=== PATIENT | female | born 1945 | race Caucasian/White ===

== ENCOUNTER 2025-01-28 18:19 | Emergency (ER) | payer BC, SELFPAY ==
[2025-01-28 18:30] VITALS: BP 238/114
[2025-01-28 18:51] VITALS: BMI 41.8
[2025-01-28 18:52] VITALS: BP 185/74
[2025-01-28 19:00] VITALS: BP 193/70
[2025-01-28 19:25] LABS: Hematocrit 38.9 % (37.0-47.0); Hemoglobin 12.6 g/dL (12.0-16.0); Mean Corp Hgb Conc. 32.4 g/dL (33.0-37.0); Mean Corpuscular Volume 85.3 fL (81.0-99.0); Nucleated Red Blood Cells % 0 %; Platelet Count 208 10^3/uL (130-400); Red Cell Dist. Width 13.4 % (11.5-14.5)
[2025-01-28 19:40] LABS: ALT (SGPT) 16 U/L (0-35); AST (SGOT) 25 U/L (14-36); Albumin 4.1 g/dl (3.5-5.0); Alkaline Phosphatase 83 U/L (38-126); Blood Urea Nitrogen 17 mg/dl (7-17); Calcium 9.3 mg/dl (8.4-10.2); Carbon Dioxide 26 mmol/L (22-30); Chloride 105 mmol/L (98-107); Estimated Creatinine Clearance 66 ml/min; Glucose 111 mg/dl (70-99); Potassium 4.2 mmol/L (3.5-5.1); Sodium 137 mmol/L (135-145); Total Protein 6.8 g/dl (6.3-8.2); eGFR > 60.00
[2025-01-28 20:00] VITALS: BP 199/78
[2025-01-28 21:00] VITALS: BP 204/91
--- NOTE | 2025-01-28 21:06 | ED.GENMED ---
History of Present Illness
General
Chief Complaint: Blood Pressure Problem
Source: patient
Time Seen by Provider: 01/28/25 20:00
History of Present Illness
History of Present Illness:
79-year-old female presents to the emergency room complaining of elevated blood pressure. Patient has been told her blood pressure did not elevate in the past. At 1 point her primary care doctor prescribed losartan. She stopped taking it because
she thought it made her constipated. She currently has no primary care provider. Patient admits that she is apprehensive to take medications. Patient went to the urgent care to have a history and physical performed in preparation for a cataract
procedure. She was feeling at her baseline and has no complaints at this time. Evidently the staff at the urgent care sent her here because her blood pressure was elevated. Patient denies any chest pain, shortness of breath, abdominal pain,
nausea or vomiting.
Past History
Past History
ED Past Medical History: HTN
Social History
Tobacco: Non-smoker
Personal:
Phy Exam
Physical Exam
Physical Exam:
General: Awake, Alert, Oriented X3. No acute distress.
Vitals: Hypertensive
Head: Atraumatic
Eyes: Pupils equal, EOMI
Throat: Airway intact, no exudates
Neck: Trachea midline
Lungs: Clear and equal b/l
Heart: Regular rate, no murmurs
Abd: Soft, Nontender, No pulsatile mass
Neuro: Nonfocal
Skin: Warm, dry, no rash
Extremities: pulses equal b/l, no edema
Course
Orders/Labs/Results
Orders:
Orders
01/28/25 18:21
EKG [Electrocardiogram (*1)] Urgent
Reason for Study: Abnormal EKG
EKG- Treatment ONCE
01/28/25 19:18
CMP [Comprehensive Metabolic Panel] Urgent
Complete Blood Count/With Diff Urgent
01/28/25 21:07
Amlodipine [Norvasc] 5 mg PO NOW STA
Abnormal Lab Results
01/28/25
19:18
MCHC 32.4 L g/dL
(33.0-37.0)
Absolute Neuts (auto) 7.9 H 10^3/uL
(1.4-6.5)
Neutrophils % 78.3 H %
(42.2-75.2)
Lymphocytes % 14.0 L %
(20.5-51.1)
Glucose 111 H mg/dl
(70-99)
01/28/25 19:18
01/28/25 19:18
Vital Signs
Initial and Last Documented VS:
Initial Vital Signs
Temp Pulse Resp BP Pulse Ox
98.9 F 83 18 238/114 98
01/28/25 18:30 01/28/25 18:30 01/28/25 18:30 01/28/25 18:30 01/28/25 18:30
Last Documented Vital Signs
Temp Pulse Resp BP Pulse Ox
98.9 F 67 20 213/78 95
01/28/25 18:30 01/28/25 21:15 01/28/25 20:00 01/28/25 21:15 01/28/25 21:15
MDM/Problems Addressed
Differential Diagnosis Includes:
Uncontrolled hypertension, renal insufficiency, electrolyte abnormality
MDM/Problems Addressed:
Patient sent to the emergency room because she was noted to have high blood pressure at the urgent care. Blood pressure is moderately elevated however the patient is asymptomatic. Physical exam and labs show no evidence for endorgan dysfunction.
Will start the patient on Norvasc. Her information was given to the [facility] so she has close follow-up.
Chronic conditions affecting care: HTN
Acute Exacerbation and/or Progression of Chronic Illness: HTN
*Pulse Oximetry
SaO2: 96
Oxygen Mode of Delivery: Room air
Patient hypoxic: no
*EKG
Interpreted by ED Provider?: Yes
Interpretation: normal
Heart Rate: 72
Rate: normal
Rhythm: sinus
[place]: normal axis
Interval: normal interval
QRS Pattern: normal QRS
Ischemia: no ischemia
*Diver Tender Interpretation
Rate: normal
Interpretation: normal
Rhythm: sinus
*Critical Care Note
Total Time (30-74mins, 75-104mins- exclusive of procedures): Not Applicable
ED Attending Note
-
Portions of this chart may have been created with voice recognition software.� Occasional wrong word or��sound alike� substitutions may have occurred due to the inherent limitations of voice recognition software.
Discharge Plan
Departure
Patient Disposition: Home (Routine Discharge)
Date of Disposition: 01/28/25
Time of Disposition: 21:07
Patient with high blood pressure during this ER visit?: Yes
Condition: Fair
Discharge Problem:
Uncontrolled hypertension
Instructions: High Blood Pressure (DC)
Prescriptions:
New
amlodipine 5 mg tablet
5 mg PO DAILY Qty: 30 0RF
No Action
Bladder 22 Supplement
1 tab PO DAILY
Patient Comments:
'bladder 2.2'
acetaminophen [Tylenol] 325 mg Tablet
650 mg PO Q6H PRN (Reason: MILD PAIN)
lidocaine [Aspercreme (lidocaine)] 4 % Adhesive Patch,Medicated
1 patch topical DAILY 10 Days Qty: 10 0RF
docusate sodium 100 mg Capsule
100 mg PO BID 30 Days Qty: 60 0RF
gabapentin 100 mg Capsule
100 mg PO BID 30 Days Qty: 60 0RF
oxycodone 5 mg Tablet
5 mg PO Q4HPRN PRN (Reason: mod sev pain) Qty: 15 0RF
Referrals:
Family [facility]idency Program [Provider Group]
NONE,* [Family Provider, Internal Medicine]
Activity Restrictions/Additional Instructions:
You should receive a call from the family practice residency clinic to make an appointment. However if you do not hear from them you should call to make the appointment.
Interventions
Interventions:
*Risk Screen - Suicide Last Done: 01/28/25 18:30
*General Assessment Last Done: 01/28/25 18:30
*Neglect/Abuse Screening Last Done: 01/28/25 18:30
*ED- Fall Risk Assessment Last Done: 01/28/25 18:30
*ED COVID-19 Vaccine History Last Done: 01/28/25 18:30
*Nursing Disposition Last Done: 01/28/25 21:28
ED- Cardiac Assessment Last Done: 01/28/25 18:53
ED- Neurological Assessment Last Done: 01/28/25 18:53
ED- Pulmonary Assessment Last Done: 01/28/25 18:55
Discharge Date and Time
Discharge Date/Time: 01/28/25 21:31
Print Language: FRENCH
[2025-01-28 21:13] VITALS: BP 213/78
[2025-01-28] MEDS: NORVASC 5 MG PO (21:15)
== END 2025-01-28 21:31 | disposition home or self-care (01) ==
LOC: EMR 18:19
PROVIDERS: Student in an Organized Health Care Education/Training Program; EMERGENCY PHYSICIAN Emergency Medicine
DX: I10 Essential (primary) hypertension (principal)
CPT/HCPCS: 99284; 80053; 85025; 93005